=== PATIENT | male | born 1950 | race Two or more races ===

== ENCOUNTER 2025-06-10 19:19 | Inpatient (IN) | payer MEDICARE, OTHER ==
[~2025-06-10] VITALS: Ht 162.6 cm; Wt 68.0 kg
[2025-06-10 20:22] LABS: PLATELET COUNT (AUTO) 241 K/uL (150-450); RED BLOOD CELL COUNT(AUTO) 4.34 MIL/uL (4.5-6.0); RED CELL DISTRIBUTION WIDTH 13.8 % (11.5-15.0); WHITE BLOOD COUNT (AUTO) 8.5 K/uL (4.3-11.0)
[2025-06-10 20:38] LABS: CALCIUM, SERUM 9.7 mg/dL (8.5-10.1); CREATININE 1.5 mg/dL (0.6-1.3); SODIUM SERUM 141 mmol/L (136-145); UREA NITROGEN, BLOOD 18 mg/dL (7-18)
[2025-06-10 20:52] LABS: ASPARTATE AMINOTRANSFERASE 20 U/L (15-37); TOTAL PROTEIN, SERUM 6.8 g/dL (6.4-8.2)
[2025-06-10] MEDS ORDERED: GLIP5TAB13 PO (21:02)
[2025-06-10] MEDS ORDERED: HALO2TAB2 PO (21:02)
[2025-06-10] MEDS ORDERED: ZIPR20CA2 PO (21:02)
[2025-06-10] MEDS ORDERED: LEVO25TA9 PO (21:02)
[2025-06-10] MEDS ORDERED: LITH150C MT (21:02)
[2025-06-10] MEDS ORDERED: SITA25TA PO (21:02)
[2025-06-10] MEDS ORDERED: LEVO25TA2 PO (21:02)
[2025-06-10] MEDS ORDERED: OLAN5TAB3 PO (21:02)
[2025-06-10 21:28] LABS: APPEARANCE,URINE CLEAR (CLEAR); BLOOD, URINE NEGATIVE Ery/uL (NEGATIVE); LEUKOCYTE ESTERASE ,URINE NEGATIVE (NEGATIVE); NITRITE, URINE NEGATIVE (NEGATIVE); UGLUCOSE NEGATIVE (NEGATIVE)
[2025-06-10 21:34] LABS: AMPHETAMINE, URINE NEGATIVE (NEGATIVE); BARBITURATE, URINE NEGATIVE (NEGATIVE); BENZODIAZEPINE, URINE NEGATIVE (NEGATIVE); CANNABINOID, URINE NEGATIVE (NEGATIVE); COCCAINE, URINE NEGATIVE (NEGATIVE); OPIATE, URINE NEGATIVE (NEGATIVE)
[2025-06-10 21:40] LABS: ADD URINE CULTURE NO; SQUAMOUS EPITHELIAL CELL,UR Few /HPF (None Seen)
[2025-06-11] MEDS ORDERED: MAG HYDROX/AL HYDROX/SIMETH 30 ML UDC PO PRN (01:00)
[2025-06-11] MEDS ORDERED: ACETAMINOPHEN 325 MG TABLET PO PRN (01:00)
[2025-06-11] MEDS ORDERED: TEMAZEPAM 7.5 MG CAPSULE PO PRN (01:00)
[2025-06-11] MEDS ORDERED: MAGNESIUM HYDROXIDE 30 ML UDC PO PRN (01:00)
[2025-06-11 01:11] VITALS: BP 133/71; TEMP 98.1
[2025-06-11] MEDS ORDERED: DEXTROSE 50%-WATER 50 ML DISP.SYRIN IV PRN (01:30)
[2025-06-11] MEDS: BLOOD SUGAR DIAGNOSTIC 1 EACH STRIP IN ONE (01:53)
[2025-06-11] MEDS: LEVOTHYROXINE SODIUM 25 MCG TABLET PO SCH (06:12)
[2025-06-11] MEDS: LORAZEPAM 1 MG TABLET PO PRN ×2 (06:13→15:45)
[2025-06-11] MEDS: BLOOD SUGAR DIAGNOSTIC 1 EACH STRIP IN SCH (06:37)
[2025-06-11 08:00] VITALS: BP 111/76; TEMP 97.7; O2SAT 98
[2025-06-11] MEDS: LINAGLIPTIN 5 MG TABLET PO SCH (08:22)
[2025-06-11] MEDS: INSULIN REGULAR, HUMAN 100 UNIT/ML 3 ML VIAL SQ PRN (12:21)
[2025-06-11] MEDS: DIVALPROEX SODIUM 125 MG TABLET.DR PO SCH (13:40)
[2025-06-11] MEDS: QUETIAPINE FUMARATE 25 MG TABLET PO SCH (13:40)
[2025-06-11] MEDS: SERTRALINE HCL 25 MG TABLET PO SCH (13:40)
[2025-06-11 16:00] VITALS: BP 136/71; TEMP 98; O2SAT 98
[2025-06-11 20:30] VITALS: BP 119/67; TEMP 98.2; O2SAT 98
[2025-06-12 08:00] VITALS: BP 134/72; TEMP 98.1; O2SAT 99
[2025-06-12] MEDS: THERAHONEY GEL 1.5 OZ TUBE TP SCH (09:43)
[2025-06-12 10:38] LABS: CREATININE 1.5 mg/dL (0.6-1.3)
[2025-06-12 10:42] LABS: ASPARTATE AMINOTRANSFERASE 23.0 U/L (15-37); CALCIUM, SERUM 9.5 mg/dL (8.5-10.1); CREATININE 1.5 mg/dL (0.6-1.3); SODIUM SERUM 138.0 mmol/L (136-145); TOTAL PROTEIN, SERUM 6.9 g/dL (6.4-8.2); UREA NITROGEN, BLOOD 22.0 mg/dL (7-18)
[2025-06-12 10:52] LABS: LDL 94.0 mg/dL (0-99)
[2025-06-12] MEDS ORDERED: DEXTROSE 50%-WATER 50 ML DISP.SYRIN IV PRN (13:30)
[2025-06-12 16:00] VITALS: BP 136/69; TEMP 97.5; O2SAT 99
[2025-06-12] MEDS: INSULIN REGULAR, HUMAN 100 UNIT/ML 3 ML VIAL SQ PRN (17:33)
[2025-06-12] MEDS: BLOOD SUGAR DIAGNOSTIC 1 EACH STRIP VI SCH (17:39)
[2025-06-12 18:19] LABS: CREATININE, URINE 164.1 MG/DL (30.0-125.0); URINE SODIUM, RANDOM 41.0 mmol/l (40-220); URINE TOTAL PROTEIN 17.1 mg/dL (0-11.9)
[2025-06-12 18:21] LABS: APPEARANCE,URINE CLEAR (CLEAR); BLOOD, URINE NEGATIVE Ery/uL (NEGATIVE); LEUKOCYTE ESTERASE ,URINE NEGATIVE (NEGATIVE); NITRITE, URINE NEGATIVE (NEGATIVE); UGLUCOSE TRACE mg/dL (NEGATIVE)
[2025-06-12 18:30] LABS: SQUAMOUS EPITHELIAL CELL,UR Moderate /HPF (None Seen)
[2025-06-12 18:31] LABS: ADD URINE CULTURE YES
[2025-06-12 19:09] LABS: EOSINOPHIL,URINE None Seen
[2025-06-12 20:26] VITALS: BP 135/68; TEMP 97.7; O2SAT 96
[2025-06-12] MEDS: *INSULIN REGULAR(HUMULIN R)HUM 100 UNIT/ML VIAL SQ PRN (22:08)
[2025-06-13 07:45] LABS: PLATELET COUNT (AUTO) 225 K/uL (150-450); RED BLOOD CELL COUNT(AUTO) 4.04 MIL/uL (4.5-6.0); RED CELL DISTRIBUTION WIDTH 14.1 % (11.5-15.0); WHITE BLOOD COUNT (AUTO) 8.6 K/uL (4.3-11.0)
[2025-06-13 07:56] LABS: PHOSPHORUS 3.3 mg/dL (2.5-4.9)
[2025-06-13 08:00] VITALS: BP 134/75; TEMP 98.6; O2SAT 98
[2025-06-13 08:17] LABS: CREATINE KINASE, TOTAL 46.0 U/L (39-308)
[2025-06-13 16:00] VITALS: BP 114/70; TEMP 98; O2SAT 99
[2025-06-13 20:30] VITALS: BP 139/73; TEMP 98; O2SAT 98
[2025-06-13] MEDS: QUETIAPINE FUMARATE 25 MG TABLET PO SCH (20:36)
[2025-06-14 07:29] LABS: PLATELET COUNT (AUTO) 224 K/uL (150-450); RED BLOOD CELL COUNT(AUTO) 3.79 MIL/uL (4.5-6.0); RED CELL DISTRIBUTION WIDTH 14.2 % (11.5-15.0); WHITE BLOOD COUNT (AUTO) 8.0 K/uL (4.3-11.0)
[2025-06-14 07:52] LABS: ASPARTATE AMINOTRANSFERASE 18.0 U/L (15-37); CALCIUM, SERUM 8.9 mg/dL (8.5-10.1); CREATININE 1.2 mg/dL (0.6-1.3); PHOSPHORUS 3.2 mg/dL (2.5-4.9); SODIUM SERUM 137.0 mmol/L (136-145); TOTAL PROTEIN, SERUM 6.5 g/dL (6.4-8.2); UREA NITROGEN, BLOOD 24.0 mg/dL (7-18)
[2025-06-14 08:00] VITALS: BP 100/60; TEMP 97.7; O2SAT 93
[2025-06-14 10:11] LABS: PTH, INTACT 28 pg/mL (15-65)
[2025-06-14 16:00] VITALS: BP 130/75; TEMP 98
[2025-06-15 08:00] VITALS: BP 116/72; TEMP 98.7; O2SAT 97
[2025-06-15 16:00] VITALS: BP 118/107; TEMP 97.7; O2SAT 100
[2025-06-15 20:05] VITALS: BP 138/77; TEMP 97.7; O2SAT 100
[2025-06-16 08:00] VITALS: BP 128/65; TEMP 97.8; O2SAT 97
[2025-06-16 16:08] VITALS: BP 141/75; TEMP 98; O2SAT 96
[2025-06-16 20:00] VITALS: BP 140/67; TEMP 97.5; O2SAT 96
[2025-06-16 20:05] VITALS: BP 140/67; TEMP 97.5; O2SAT 98
[2025-06-16] MEDS: DIVALPROEX SODIUM 250 MG TABLET.DR PO SCH (21:31)
[2025-06-17 07:41] VITALS: BP 123/70; TEMP 98.1; O2SAT 100
[2025-06-17 08:00] VITALS: BP 123/70; TEMP 98.1; O2SAT 100
[2025-06-17] MEDS: SERTRALINE HCL 25 MG TABLET PO SCH (08:10)
[2025-06-17 15:55] VITALS: BP 124/110; TEMP 98; O2SAT 99
[2025-06-17 16:00] VITALS: BP 124/110; TEMP 98; O2SAT 99
[2025-06-18 08:00] VITALS: BP 127/76; TEMP 97.6; O2SAT 97
[2025-06-18] MEDS ORDERED: SITA50TA PO (14:47)
[2025-06-18] MEDS ORDERED: GLIP5TAB13 PO (14:47)
[2025-06-18 16:00] VITALS: BP 126/82; TEMP 97.8; O2SAT 100
[2025-06-18 18:08] LABS: *SPE A/G RATIO 1.0 (0.7-1.7); *SPE ALBUMIN 3.2 g/dL (2.9-4.4); *SPE ALPHA-1-GLOBULIN 0.2 g/dL (0.0-0.4); *SPE ALPHA-2-GLOBULIN 0.7 g/dL (0.4-1.0); *SPE BETA GLOBULIN 1.2 g/dL (0.7-1.3); *SPE GLOBULIN, TOTAL 3.2 g/dL (2.2-3.9); *SPE M-SPIKE Not Observed g/dL (Not Observed); *SPE PROTEIN TOTAL 6.4 g/dL (6.0-8.5); *SPEGAMMA GLOBULIN 1.0 g/dL (0.4-1.8)
== END 2025-06-18 16:26 | disposition home or self-care (01) | DRG 885 ==
LOC: ER 19:25 → GPS 20:36
PROVIDERS: ADMIT Registered Nurse; ATTEND Nurse Practitioner Acute Care
DX: F25.9 Schizoaffective disorder, unspecified (principal); N18.9 Chronic kidney disease, unspecified; E44.1 Mild protein-calorie malnutrition; E88.09 Other disorders of plasma-protein metabolism, not elsewhere classified; F29 Unspecified psychosis not due to a substance or known physiological condition; D64.9 Anemia, unspecified; E11.21 Type 2 diabetes mellitus with diabetic nephropathy; E03.9 Hypothyroidism, unspecified; E11.22 Type 2 diabetes mellitus with diabetic chronic kidney disease; S61.512A Laceration without foreign body of left wrist, initial encounter; I12.9 Hypertensive chronic kidney disease with stage 1 through stage 4 chronic kidney disease, or unspecified chronic kidney disease; R45.851 Suicidal ideations; F31.9 Bipolar disorder, unspecified; F41.9 Anxiety disorder, unspecified; Z79.890 Hormone replacement therapy; Z79.84 Long term (current) use of oral hypoglycemic drugs; Z91.51 Personal history of suicidal behavior; X58.XXXA Exposure to other specified factors, initial encounter; Y92.9 Unspecified place or not applicable; F39 Unspecified mood [affective] disorder; R79.89 Other specified abnormal findings of blood chemistry
CPT/HCPCS: 36415; 80048-TC; 80053-TC; 80061-TC; 80076-TC; 80164-TC; 81001; 82550-TC; 82565-TC; 82570-TC; 82962-TC; 83735-TC; 83970; 84100-TC; 84155; 84165; 84300-TC; 84443-TC; 85025-TC; 87081-TC; 87086-TC; 97110-TC; 97116-TC; 97530-TC; 98960; A6403; J1815